=== PATIENT | female | born 1970 | race Caucasian/White ===

== ENCOUNTER → 2016-03-01 | Outpatient (CLI) | payer MEDICAID | LOC: RT 08:52 | PROVIDERS: ATTEND Internal Medicine Critical Care Medicine | DX: J44.9 Chronic obstructive pulmonary disease, unspecified (principal); J45.909 Unspecified asthma, uncomplicated; R06.00 Dyspnea, unspecified; J30.2 Other seasonal allergic rhinitis; Z72.0 Tobacco use | CPT/HCPCS: 94060; 94726; 94729 ==

== ENCOUNTER 2017-03-16 14:57 | Inpatient (IN) | payer MEDICAID ==
[2017-03-16] VITALS (10 sets, daily range): BP systolic 107–116; BP diastolic 62–74
[~2017-03-16] VITALS: Ht 165.1 cm; Wt 54.1 kg
[2017-03-16] MEDS ORDERED: RT-ALBUTEROL/IPRATROPIUM 3 ML (DUONEB) VIAL ONE ×2 (15:01→15:52)
--- OUTSIDE RECORDS SUMMARY | 2017-03-16 15:02 | XMS REPORT ---
Author Author ALEX BANKS [facility] Address [address] [place] [address] Care Team Providers Care Rehab Spec Name Role Phone ALEX BANKS Unavailable PROBLEMS Type Condition ICD9-CM Code CGB56-PR Code Onset Dates Condition Status SNOMED Code Assessment COPD exacerbation J44.1 Oct, Active [id number] ALLERGIES Substance Reaction Event Type Date Status Erythromycin Unknown Drug Allergy Oct, Active SOCIAL HISTORY No smoking Hx information available PLAN OF CARE VITAL SIGNS Heart Rate 132 bpm 2015-10-14 Respiratory Rate 22 2015-10-14 Oximetry 86 % 2015-10-14 Blood pressure systolic 130 mmHg 2015-10-14 Blood pressure diastolic 78 mmHg 2015-10-14 MEDICATIONS Medication Instructions Dosage Frequency Start Date End Date Duration Status Xopenex HFA 45 MCG/ACT Inhalation every 4 hrs 1 puff as needed 4h Active Albuterol Sulfate (2.5 MG/3ML) 0.083% Inhalation Three times a day 3 ml 8h Active Stiolto Respimat 2.5-2.5 MCG/ACT Inhalation Once a day 2 puffs 24h Active RESULTS No Results PROCEDURES Procedure Date Ordered Related Diagnosis Body Site NEBULIZER TREATMENT 2015-10-14 Abnormal MEASURE BLOOD OXYGEN LEVEL Oct 14, 2015 Office Visit, New Pt., Level 2 Oct 14, 2015 NEB/MDI RX INITIAL Oct 14, 2015 IMMUNIZATIONS No Known Immunizations
[2017-03-16] MEDS ORDERED: methylPREDNISolone 125 MG (Solu-MEDROL) VIAL IVP ONE (15:15)
[2017-03-16 15:18] LABS: BASOPHILS % (AUTO) 0 % (0-10); EOSINOPHILS % (AUTO) 0 % (0-10); HEMATOCRIT 42 % (35-52); HEMOGLOBIN 11.7 G/DL (11.5-16.0); LYMPHOCYTES # (AUTO) 0.6 X 10^3 (1.0-4.0); LYMPHOCYTES % (AUTO) 6 % (12-44); MEAN CORPUSCULAR HEMOGLOBIN 28 PG (25-34); MEAN CORPUSCULAR HGB CONC 28 G/DL (32-36); MEAN CORPUSCULAR VOLUME 100 FL (80-99); MEAN PLATELET VOLUME 10.2 FL (7.4-10.4); MONOCYTES # (AUTO) 0.5 X 10^3 (0.0-1.0); MONOCYTES % (AUTO) 6 % (0-12); NEUTROPHILS # (AUTO) 7.9 X 10^3 (1.8-7.8); NEUTROPHILS % (AUTO) 88 % (42-75); PLATELET COUNT 275 10^3/uL (130-400); RED BLOOD COUNT 4.25 10^6/uL (4.35-5.85); RED CELL DISTRIBUTION WIDTH 12.8 % (10.0-14.5)
[2017-03-16] MEDS ORDERED: RT-ALBUTEROL SULF 2.5 MG/3 ML PRE-MIX VIAL INH STA (15:24)
[2017-03-16] MEDS ORDERED: RT-IPRATROPIUM (ATROVENT) 0.5MG/2.5ML AMP IH ONE (15:30)
[2017-03-16] MEDS ORDERED: NS IV 1000 ML 1,000 ML ONE (15:33)
[2017-03-16 15:38] LABS: BAND NEUTROPHILS 0 %; BASOPHILS % (MANUAL) 0 %; EOSINOPHILS % (MANUAL) 0 %; LYMPHOCYTES % (MANUAL) 8 %; MONOCYTES % (MANUAL) 3 %; NEUTROPHILS % (MANUAL) 89 %
[2017-03-16 15:39] LABS: STOMATOCYTES MODERATE
[2017-03-16 15:40] LABS: ALANINE AMINOTRANSFERASE 29 U/L (0-55); ALBUMIN 3.8 GM/DL (3.2-4.5); ALKALINE PHOSPHATASE 76 U/L (40-136); BILIRUBIN,TOTAL 0.2 MG/DL (0.1-1.0); BUN/CREATININE RATIO 11; CARBON DIOXIDE 45 MMOL/L (21-32); CHLORIDE 85 MMOL/L (98-107); CREATININE SERUM 0.54 MG/DL (0.60-1.30); GFR ESTIMATED > 60; GLUCOSE 164 MG/DL (70-105); POTASSIUM 4.3 MMOL/L (3.6-5.0); SODIUM 141 MMOL/L (135-145); TOTAL PROTEIN 7.7 GM/DL (6.4-8.2)
[2017-03-16] MEDS ORDERED: NS IV 1000 ML 1,000 ML IV ONE (15:45)
[2017-03-16 16:10] LABS: ABG BASE EXCESS 26.4 MMOL/L (-2.5-2.5); ABG OXYGEN SATURATION 95 % (94-100); ABG PH 7.36 (7.37-7.43); ABG PO2 72 MMHG (79-93); ABG TCO2 56.6 MMOL/L (21.0-31.0)
[2017-03-16 16:12] LABS: ABG PCO2 96 MMHG (35-45)
[2017-03-16 16:13] LABS: ALLENS TEST POSITIVE
[2017-03-16 16:14] LABS: INSPIRED O2 40% BIPAP; PATIENT TEMP 97.8; VENTILATOR NO
--- NOTE | 2017-03-16 16:17 | Diagnostic Imaging Report ---
PATIENT HISTORY: Shortness of air, hypoglycemia, hypoxemia. TECHNIQUE: Single frontal view of the chest. COMPARISON: CT from 03/16/2017. FINDINGS: Lung volumes are mildly large. No focal consolidation is seen. There is no pleural effusion or pneumothorax. The cardiomediastinal silhouette appears normal in size and contour. No acute osseous abnormality is seen. IMPRESSION: No acute pulmonary abnormality. Dictated by: Dictated on workstation # [id number]
--- NOTE | 2017-03-16 17:24 | ED Respiratory ---
General Chief Complaint: Respiratory Problems Stated Complaint: LOW BS Nursing Triage Note: pt, family report had been having soa today, worsening following a ct scan approx 30 min ago. 02 at 51% on 3L on arrival to the ER, alert and oriented. seen by pcp, and instructed to only ambulate to and from bathroom, and encouraged hospital admit, but pt refused. pt request DNI at this time. Source: patient, family, old records Exam Limitations: no limitations History of Present Illness Date Seen by Provider: Mar 16, 2017 Time Seen by Provider: 14:58 Initial Comments This 46-year-old woman presents to the emergency room with extreme dyspnea, chest discomfort, pallor, and oxygen saturation of 51 percent. She was calling for help in distress and felt like she was going to "go down". Patient has known severe COPD and was at the hospital for a CT scan when her oxygen take ran out. She was transferred to the emergency room. Patient had received a CT scan for follow-up on pulmonary nodules. CT was reviewed and those nodules have resolved and there is no evidence of infection. Oxygen saturations improved to the 80s on high flow mask. Respiratory therapy was summoned for BiPAP. DuoNeb was immediately initiated. Patient states a prior history of CHF but no echocardiogram is on file. Patient admits to continued smoking. She is down to about 2 cigarettes per day. Patient had been intubated recently at [facility] in [place]. Patient's primary care provider, Dr. JOHNSON , has advised the patient that she is nearing end-stage disease and needs to make preparations as such. Allergies and Home Medications Allergies Coded Allergies: No Allergy Information Available (Unverified , 12/15/16) Constitutional: no symptoms reported EENTM: no symptoms reported Respiratory: see HPI Cardiovascular: see HPI Gastrointestinal: no symptoms reported Genitourinary: no symptoms reported : No Musculoskeletal: no symptoms reported Skin: no symptoms reported Psychiatric/Neurological: No Symptoms Reported Hematologic/Lymphatic: No Symptoms Reported Past Njqokyi-Dxhzai-Vqpzjk Hx Patient Social History Alcohol Use: Past History Recreational Drug Use: Yes Drug of Choice: meth, marijuana Smoking Status: Current Everyday Smoker Type Used: Cigarettes 2nd Hand Smoke Exposure: Yes Recent Foreign Travel: No Contact w/Someone Who Travel: No Recent Infectious Disease Expo: No Recent Hopitalizations: Yes Immunizations Up To Date Tetanus Booster (TDap): Less than 5yrs PED Vaccines UTD: No Date of Pneumonia Vaccine: Dec 10, 2007 Date of Influenza Vaccine: Jan 12, 2017 Seasonal Allergies Seasonal Allergies: Yes Surgeries History of Surgeries: Yes Surgeries: Section Respiratory History of Respiratory Disorde: Yes (Nodules that have resolved) Respiratory Disorders: Asthma, Pneumonia, COPD, Emphysema Currently Using CPAP: Yes (used to) Currently Using BIPAP: No Cardiovascular History of Cardiac Disorders: Yes (CHF) Cardiac Disorders: Hypertension Neurological History of Neurological Disord: No Reproductive System : No Sexually Transmitted Disease: Yes (HPV) Genitourinary History of Genitourinary Disor: No Gastrointestinal History of Gastrointestinal Di: No Musculoskeletal History of Musculoskeletal Dis: No Endocrine History of Endocrine Disorders: Yes (pre-diabetic) Cancer History of Cancer: Yes Cancer: Cervical Did You Recieve Any Treatments: Yes Type of Tx Receive: Surgical Intervention Cancer Comment: believe it was caught early Psychosocial History of Psychiatric Problem: Yes Behavioral Health Disorders: Anxiety, ODD, Bipolar, Violent Behavior, Depression Integumentary History of Skin or Integumenta: No Blood Transfusions 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) Physical Exam Vital Signs Vital Sign - Last 12Hours 03/16/17 03/16/17 15:08 15:57 Pulse 117 Resp 28 B/P (MAP) 132/85 (101) Pulse Ox 96 O2 Delivery OxyMask O2 Flow Rate 15.00 FiO2 86 Capillary Refill : Less Than 3 Seconds General Appearance: WD/WN, severe distress HEENT: PERRL/EOMI, normal ENT inspection, other (oropharynx somewhat dry) Neck: normal inspection Respiratory: respiratory distress, decreased breath sounds, accessory muscle use, No crackles, No rales, No rhonchi, wheezing (subtle wheezing) Cardiovascular: no edema, no murmur, tachycardia Gastrointestinal: normal bowel sounds, non tender, soft Extremities: non-tender, normal inspection, no pedal edema, no calf tenderness Neurologic/Psychiatric: alarm signaler II-XII nml as tested, no motor/sensory deficits, alert, normal mood/affect, oriented x 3 Skin: normal color, warm/dry Focused Exam Evaluation Lactate Level Laboratory Tests 03/16/17 15:09: Lactic Acid Level 1.91 Lactic Acid Level Laboratory Tests Test 03/16/17 15:09 Lactic Acid Level 1.91 MMOL/L (0.50-2.00) Progress/Results/Core Measures Suspected Sepsis Recent Fever Within 48 Hours: Yes Infection Criteria Present: Suspected New Infection New/Unexplained Altered Menta: No Sepsis Screen: Possible Sepsis Risk Sepsis Diagnosis: SIRS Temperature: Pulse: 110 Respiratory Rate: 28 Laboratory Tests 03/16/17 15:09: White Blood Count 9.0 Blood Pressure 112 /74 Mean: 101 Laboratory Tests 03/16/17 15:09: Lactic Acid Level 1.91 Laboratory Tests 03/16/17 15:09: Creatinine 0.54L, Platelet Count 275, Total Bilirubin 0.2 Results/Orders Lab Results Laboratory Tests Test 03/16/17 15:09 03/16/17 15:45 Range/Units White Blood Count 9.0 4.3-11.0 10^3/uL Red Blood Count 4.25 L 4.35-5.85 10^6/uL Hemoglobin 11.7 11.5-16.0 G/DL Hematocrit 42 35-52 % Mean Corpuscular Volume 100 H 80-99 FL Mean Corpuscular Hemoglobin 28 25-34 PG Mean Corpuscular Hemoglobin Concent 28 L 32-36 G/DL Red Cell Distribution Width 12.8 10.0-14.5 % Platelet Count 275 130-400 10^3/uL Mean Platelet Volume 10.2 7.4-10.4 FL Neutrophils (%) (Auto) 88 H 42-75 % Lymphocytes (%) (Auto) 6 L 12-44 % Monocytes (%) (Auto) 6 0-12 % Eosinophils (%) (Auto) 0 0-10 % Basophils (%) (Auto) 0 0-10 % Neutrophils # (Auto) 7.9 H 1.8-7.8 X 10^3 Lymphocytes # (Auto) 0.6 L 1.0-4.0 X 10^3 Monocytes # (Auto) 0.5 0.0-1.0 X 10^3 Eosinophils # (Auto) 0.0 0.0-0.3 10^3/uL Basophils # (Auto) 0.0 0.0-0.1 10^3/uL Neutrophils % (Manual) 89 % Lymphocytes % (Manual) 8 % Monocytes % (Manual) 3 % Eosinophils % (Manual) 0 % Basophils % (Manual) 0 % Band Neutrophils 0 % Stomatocytes MODERATE Sodium Level 141 135-145 MMOL/L Potassium Level 4.3 3.6-5.0 MMOL/L Chloride Level 85 L 98-107 MMOL/L Carbon Dioxide Level 45 H 21-32 MMOL/L Anion Gap 11 5-14 MMOL/L Blood Urea Nitrogen 6 L 7-18 MG/DL Creatinine 0.54 L 0.60-1.30 MG/DL Estimat Glomerular Filtration Rate > 60 BUN/Creatinine Ratio 11 Glucose Level 164 H 70-105 MG/DL Lactic Acid Level 1.91 0.50-2.00 MMOL/L Calcium Level 10.0 8.5-10.1 MG/DL Total Bilirubin 0.2 0.1-1.0 MG/DL Aspartate Amino Transf (AST/SGOT) 18 5-34 U/L Alanine Aminotransferase (ALT/SGPT) 29 0-55 U/L Alkaline Phosphatase 76 40-136 U/L Troponin I < 0.30 <0.30 NG/ML Total Protein 7.7 6.4-8.2 GM/DL Albumin 3.8 3.2-4.5 GM/DL Serum Test, Qualitative NEGATIVE NEGATIVE Blood Gas Puncture Site LEFT RADIAL Blood Gas Patient Temperature 97.8 Arterial Blood pH 7.36 L 7.37-7.43 Arterial Blood Partial Pressure CO2 96 *H 35-45 MMHG Arterial Blood Partial Pressure O2 72 L 79-93 MMHG Arterial Blood HCO3 54 *H 23-27 MMOL/L Arterial Blood Total CO2 56.6 H 21.0-31.0 MMOL/L Arterial Blood Oxygen Saturation 95 94-100 % Arterial Blood Base Excess 26.4 H -2.5-2.5 MMOL/L Myke Test POSITIVE Blood Gas Ventilator Setting NO Blood Gas Inspired Oxygen 40% BIPAP My Orders Orders - HIMANSHU ALSTON MD Albuterol/Ipra Inhalation Soln (Duoneb I (03/16/17 15:01) Cbc With Automated Diff (03/16/17 15:08) Comprehensive Metabolic Panel (03/16/17 15:08) Blood Culture (03/16/17 15:08) Saline Lock/Iv-Start (03/16/17 15:08) Ekg Tracing (03/16/17 15:08) O2 (03/16/17 15:08) Lactic Acid Analyzer (03/16/17 15:08) Methylprednisolone Sod Succ (Solu-Medrol (03/16/17 15:15) Manual Differential (03/16/17 15:09) Albuterol Pre-Mix Nebs (Rt) (Proventil (03/16/17 15:24) Ipratropium 0.02% Neb Solution (Atrovent (03/16/17 15:30) Svn Sm Volume Nebulizer Rt-Rfs (03/16/17 15:24) Svn Sm Volume Nebulizer Rt-Rfs (03/16/17 15:24) Chest 1 View, Ap/Pa Only (03/16/17 15:27) Ns Iv 1000 Ml (Sodium Chloride 0.9%) (03/16/17 15:33) Ns Iv 1000 Ml (Sodium Chloride 0.9%) (03/16/17 15:45) Albuterol/Ipra Inhalation Soln (Duoneb I (03/16/17 15:52) Arterial Blood Gas (03/16/17 15:45) Troponin I (03/16/17 16:57) Medications Given in ED Current Medications Medications Dose Ordered Sig/Bhargavi Route Start Time Stop Time Status Last Admin Dose Admin Methylprednisolone Sodium Succinate 125 mg ONCE ONCE IVP 03/16/17 15:15 03/16/17 15:16 DC 03/16/17 15:49 125 MG Sodium Chloride 1,000 ml @ 100 mls/hr Q10H ONCE IV 03/16/17 15:45 03/17/17 01:44 03/16/17 15:52 100 MLS/HR Vital Signs/I&O Vital Sign - Last 12Hours 03/16/17 03/16/17 03/16/17 03/16/17 15:08 15:08 15:37 15:57 Pulse 117 115 110 Resp 28 B/P (MAP) 132/85 (101) Pulse Ox 96 93 92 O2 Delivery OxyMask OxyMask O2 Flow Rate 15.00 15.00 40.00 50.00 FiO2 86 Capillary Refill : Less Than 3 Seconds Blood Pressure Mean: 101 Progress Note : Progress Note Patient was treated with a double DuoNeb treatment followed by an hour-long nebulizer treatment. She was also given Solu-Medrol 125 mg IV route. Normal saline was started at 100 mL per hour. Hydration will be given cautiously due to patient's stated history of CHF. Patient did have some chest pain associated with her shortness of breath. EKG and troponin showed no evidence of ischemia. Patient was promptly started on BiPAP which significantly improved her respiratory status. Case was reviewed with Dr. Nassar who requested consultation with Dr. Mcmahon and Dr. Wong. Dr. Mcmahon requested scheduled nebulizer treatments and Solu-Medrol 40 mg every 6 hours. He will see the patient in the morning. Dr. Wong requested a 2-D echocardiogram for the morning. I did have a long discussion about CODE STATUS with the patient and her guests/family. Patient wants to avoid intubation as she has been intubated previously including a recent intubation at [facility] in [place]. At this time she would like to be intubated only if it is a last resort to save her life. ECG Initial ECG Impression Date: Mar 16, 2017 Initial ECG Impression Time: 15:08 Initial ECG Rate: 118 Initial ECG Rhythm: S.Tach Comment Sinus tachycardia with no ST elevation or depression. No abnormal intervals or axis deviation. Diagnostic Imaging Diagonstic Imaging: Xray Plain Films/CT/US/NM/MRI: chest Comments Chest x-ray viewed by me and report reviewed. See report below: NAME: [facility] REC#: [id number] PT STATUS: REG ER : 1970 PHYSICIAN: HIMANSHU ALSTON MD ADMIT DATE: 03/16/17/ER Signed Date of Exam: 03/16/17 CHEST 1 VIEW, AP/PA ONLY PATIENT HISTORY: Shortness of air, hypoglycemia, hypoxemia. TECHNIQUE: Single frontal view of the chest. COMPARISON: CT from 03/16/2017. FINDINGS: Lung volumes are mildly large. No focal consolidation is seen. There is no pleural effusion or pneumothorax. The cardiomediastinal silhouette appears normal in size and contour. No acute osseous abnormality is seen. IMPRESSION: No acute pulmonary abnormality. Dictated by: Dictated on workstation # [id number] Dict: 03/16/17 1614 Trans: 03/16/17 1635 Interpreted by: MAYA SCRUGGS MD Electronically signed by: MAYA SCRUGGS MD 03/16/17 1635 Departure Communication (Admissions) Time/Spoke to Admitting Phy: 17:[address] Nassar Communication/Consulting Dr. Mcmahon at 17:05 Dr. Wong at 17:10 Impression Impression: Primary Impression: Respiratory failure Qualified Codes: J96.01 - Acute respiratory failure with hypoxia; J96.02 - Acute respiratory failure with hypercapnia Additional Impressions: COPD exacerbation Chest pain Qualified Codes: R07.9 - Chest pain, unspecified Disposition: ADMITTED INPATIENT Condition: Improved Admissions Decision to Admit Reason: Admit from ER (General) Decision to Admit/Date: Mar 16, 2017 Time/Decision to Admit Time: 15:00 Departure-Patient Inst. Referrals: RICHELLE JOHNSON DO (PCP/Family) Primary Care Physician HIMANSHU ALSTON MD Mar 16, 2017 17:24
[2017-03-16] MEDS ORDERED: ASPIRIN 325 MG (5 GR) TABLET PO ONE (17:30)
[2017-03-16] MEDS ORDERED: RT-ALBUTEROL SULF 2.5 MG/3 ML PRE-MIX VIAL IH PRN (18:45)
[2017-03-16] MEDS ORDERED: ENOXAPARIN 40 MG/0.4 ML (LOVENOX) SYR SC SCH (18:45)
[2017-03-16] MEDS ORDERED: CATHETER FLUSH 10 ML SYR IV PRN (18:45)
[2017-03-16] MEDS: NS IV 1000 ML 1,000 ML IV SCH (19:37)
[2017-03-16] MEDS: inSUlin (REGULAR) HUMAN 1 UNIT/0.01 ML (CHARGE PER UNIT) SC SCH (21:02)
[2017-03-16] MEDS: ALPRAZolam 1 MG (XANAX) TAB PO SCH ×2 (22:05→22:39)
[2017-03-16] MEDS: RT-ALBUTEROL/IPRATROPIUM 3 ML (DUONEB) VIAL IH SCH (23:00)
[2017-03-17] VITALS (19 sets, daily range): BP systolic 103–129; BP diastolic 65–111
[2017-03-17] MEDS: methylPREDNISolone 40 MG/ML (Solu-MEDROL) VIAL IV SCH ×5 (00:10→23:57)
[2017-03-17] MEDS: NS IV 1000 ML 1,000 ML IV SCH ×2 (02:09→15:09)
[2017-03-17] MEDS: RT-ALBUTEROL/IPRATROPIUM 3 ML (DUONEB) VIAL IH SCH ×6 (02:37→22:45)
[2017-03-17 05:07] LABS: BASOPHILS % (AUTO) 0 % (0-10); EOSINOPHILS % (AUTO) 0 % (0-10); HEMATOCRIT 37 % (35-52); HEMOGLOBIN 10.3 G/DL (11.5-16.0); LYMPHOCYTES # (AUTO) 0.3 X 10^3 (1.0-4.0); LYMPHOCYTES % (AUTO) 7 % (12-44); MEAN CORPUSCULAR HEMOGLOBIN 28 PG (25-34); MEAN CORPUSCULAR HGB CONC 28 G/DL (32-36); MEAN CORPUSCULAR VOLUME 99 FL (80-99); MEAN PLATELET VOLUME 10.3 FL (7.4-10.4); MONOCYTES # (AUTO) 0.2 X 10^3 (0.0-1.0); MONOCYTES % (AUTO) 5 % (0-12); NEUTROPHILS # (AUTO) 4.5 X 10^3 (1.8-7.8); NEUTROPHILS % (AUTO) 89 % (42-75); PLATELET COUNT 258 10^3/uL (130-400); RED BLOOD COUNT 3.71 10^6/uL (4.35-5.85); RED CELL DISTRIBUTION WIDTH 12.7 % (10.0-14.5); WHITE BLOOD COUNT 5.1 10^3/uL (4.3-11.0)
[2017-03-17 05:35] LABS: BUN/CREATININE RATIO 18; CALCIUM 9.5 MG/DL (8.5-10.1); CARBON DIOXIDE 41 MMOL/L (21-32); CHLORIDE 90 MMOL/L (98-107); GFR ESTIMATED > 60; GLUCOSE 200 MG/DL (70-105); MAGNESIUM 1.5 MG/DL (1.8-2.4); PHOSPHORUS 3.1 MG/DL (2.3-4.7); POTASSIUM 4.6 MMOL/L (3.6-5.0); SODIUM 142 MMOL/L (135-145)
[2017-03-17] MEDS ORDERED: MAGNESIUM 1 GM/100 ML IVPB 100 ML IV SCH (06:00)
[2017-03-17] MEDS ORDERED: POTASSIUM CL 10MEQ/50ML IVPB 50 ML IV SCH (06:00)
[2017-03-17] MEDS ORDERED: KCL 20 MEQ TAB (K-DUR) PO SCH (06:00)
[2017-03-17] MEDS: MAGNESIUM 1 GM/100 ML IVPB 100 ML IV SCH ×2 (06:02→07:32)
[2017-03-17] MEDS: inSUlin (REGULAR) HUMAN 1 UNIT/0.01 ML (CHARGE PER UNIT) SC SCH ×4 (06:02→20:14)
[2017-03-17] MEDS: ALPRAZolam 1 MG (XANAX) TAB PO SCH ×4 (06:02→22:06)
--- NOTE | 2017-03-17 06:43 | Pulmonary Consultation ---
History of Present Illness History of Present Illness Date of Consultation 03/17/17 06:38 Time Seen by Provider: 06:38 Date of Admission History of Present Illness 46yo with hx of severe COPD and persistent tobacco use, and hx of CHF presented to ED secondary to worsening extreme dyspnea and chest pressure. Sp02 on RA was 51% upon ED admission. Pt was at the hospital getting a CT of chest to fMarcu on lung nodules. She was taken to ED secondary to severe COPD. Pt was recently on ventilator at [facility] in [place]. Allergies and Home Medications Allergies Coded Allergies: azithromycin (Verified Allergy, Intermediate, 03/16/17) lip swelling and blisters codeine (Verified Allergy, Unknown, 03/16/17) Past Darylaw-Zetgvn-Oisvsq Hx Patient Social History Alcohol Use: Denies Use Recreational Drug Use: Yes Drug of Choice: meth, marijuana Smoking Status: Current Everyday Smoker Type Used: Cigarettes 2nd Hand Smoke Exposure: Yes Recent Foreign Travel: No Contact w/Someone Who Travel: No Recent Infectious Disease Expo: No Recent Hopitalizations: Yes Immunizations Up To Date Tetanus Booster (TDap): Less than 5yrs PED Vaccines UTD: No Date of Pneumonia Vaccine: Dec 10, 2007 Date of Influenza Vaccine: Jan 12, 2017 Seasonal Allergies Seasonal Allergies: Yes Surgeries History of Surgeries: Yes Surgeries: Section Respiratory History of Respiratory Disorde: Yes (Nodules that have resolved) Respiratory Disorders: Asthma, Pneumonia, COPD, Emphysema Currently Using CPAP: Yes (used to) Currently Using BIPAP: No Cardiovascular History of Cardiac Disorders: Yes (CHF) Cardiac Disorders: Hypertension Neurological History of Neurological Disord: No Reproductive System : No Sexually Transmitted Disease: Yes (HPV) Genitourinary History of Genitourinary Disor: No Gastrointestinal History of Gastrointestinal Di: No Musculoskeletal History of Musculoskeletal Dis: No Endocrine History of Endocrine Disorders: Yes (pre-diabetic) HEENT History of HEENT Disorders: No Cancer History of Cancer: Yes Cancer: Cervical Did You Recieve Any Treatments: Yes Type of Tx Receive: Surgical Intervention Cancer Comment: believe it was caught early Psychosocial History of Psychiatric Problem: Yes Behavioral Health Disorders: Anxiety, ODD, Bipolar, Violent Behavior, Depression Integumentary History of Skin or Integumenta: No Blood Transfusions 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 Dyspnea, Lt Headedness Neurological: Weakness Exam Exam Vital Signs Date Time Temp Pulse Resp B/P (MAP) Pulse Ox O2 Delivery O2 Flow Rate FiO2 03/17/17 06:00 96 20 115/75 (88) 98 NIV Bilevel 40.00 03/17/17 05:00 95 13 129/111 (117) 94 NIV Bilevel 40.00 03/17/17 04:00 98 21 121/71 (88) 92 NIV Bilevel 40.00 03/17/17 03:37 110 26 93 40.00 03/17/17 03:37 NIV Bilevel 40.00 03/17/17 03:35 93 NIV Bilevel 50 03/17/17 03:25 NIV Bilevel 50.00 03/17/17 03:00 105 21 120/69 (86) 95 03/17/17 02:38 96 Nasal Cannula 5.00 03/17/17 02:00 101 20 120/75 (90) 96 High Flow N/C 6.00 03/17/17 01:00 97 03/17/17 01:00 96 21 114/67 (83) 97 High Flow N/C 6.00 03/17/17 00:05 94 High Flow N/C 6.00 03/17/17 00:00 95 20 119/67 (84) 98 High Flow N/C 6.00 03/17/17 00:00 97.8 94 High Flow N/C 6.00 03/16/17 23:02 100 19 98 50.00 03/16/17 23:00 99 23 113/67 (82) 98 NIV Bilevel 50.00 03/16/17 22:00 103 21 115/62 (79) 96 NIV Bilevel 50.00 03/16/17 21:01 101 22 98 60.00 03/16/17 21:00 101 20 113/66 (82) 97 NIV Bilevel 50.00 03/16/17 20:15 98 NIV Bilevel 50 03/16/17 20:00 105 21 116/72 (87) 95 NIV Bilevel 60.00 03/16/17 19:27 107 29 100 60.00 03/16/17 19:00 97.7 105 21 111/74 (86) 100 NIV Bilevel 60.00 03/16/17 19:00 104 03/16/17 18:20 NIV Bilevel 03/16/17 18:10 96.9 95 20 92 OxyMask 50.00 03/16/17 15:57 110 28 92 50.00 03/16/17 15:37 115 93 40.00 03/16/17 15:08 117 132/85 (101) 96 OxyMask 15.00 03/16/17 15:08 OxyMask 15.00 86 I & O 03/17/17 07:00 Intake Total 1245 ml Output Total 875 ml Balance 370 ml General Appearance: Mild Distress HEENT: Pharynx Normal Neck: Non Tender, Supple Respiratory: Accessory Muscle Use, Decreased Breath Sounds, Wheezing Cardiovascular: Regular Rate, Rhythm Capillary Refill: Less Than 3 Seconds Gastrointestinal: normal bowel sounds, non tender, soft Extremity: Non Tender, No Calf Tenderness, No Pedal Edema Neurologic/Psychiatric: Oriented x3 Skin: Normal Color, Warm/Dry Lymphatic: No Adenopathy Results Lab Laboratory Tests 03/16/17 15:09 03/17/17 04:22 Assessment/Plan Assessment/Plan Acute on chronic respiratory failure -SVNs -oxygen -PT improved with noninvasive ventilation -PT will benefit from home vent to mask -Pt has oxygen through [facility] Severe COPD with AE - Pt uses 2-3 liters of oxygen at home Tobacco use -education Methamphetamine hx Marijuana hx 255 Clinical Quality Measures DVT/VTE Risk/Contraindication: Risk Factor Score Per Nursin RFS Level Per Nursing on Admit: 2=Moderate TALIAT HUIZAR DO Mar 17, 2017 06:43
[2017-03-17] MEDS: RT-ADVAIR HFA 115/21 MCG PER PUFF IH SCH ×2 (07:24→19:25)
--- NOTE | 2017-03-17 09:30 | Diagnostic Imaging Report ---
INDICATION: COPD exacerbation. FINDINGS: Lungs are clear. The heart and vascularity within normal limits. There is no effusion or pneumothorax. IMPRESSION: No acute appearing abnormality. Dictated by: Dictated on workstation # [id number]
--- NOTE | 2017-03-17 12:50 | History & Physical-Hospitalist ---
HPI History of Present Illness: HPI/Chief Complaint CC: Dyspnea HPI: This is a 46-year-old white female clinic patient of Dr. BAUTISTA in [place] with a past medical history of severe COPD and was also told by her primary care provider to get her affairs in order and likely a hospice candidate due to the severity of her COPD. She was at via [facility], [place] to obtain CT scan of her lung due to lung nodule but there was no nodule noted on repeat CT scan that she became very short of breath was in severe respiratory distress when she was sent to the ER placed on BiPAP and much improved now. She does continue to smoke and she told me that she wanted to have all natural herbals and supplements instead of pharmaceutical medication to help her get healthy again. She is aware that the first thing she needs to do is discontinue smoking. ER doctor and Dr. Mcmahon talked her about CODE STATUS since if she did get placed on ventilator there would be no chance of getting off the ventilator and trach dependent ventilator dependent status would occur. She is doing better now she only has to take a breath after every for words and she is asking for a Nicoderm patch. Source: patient Exam Limitations: no limitations Date Seen 03/17/17 Time Seen by Provider: 11:15 Attending Physician Clarisa Bernstein DO PCP Jose Bautista DO Referring Physician Date of Admission Mar 16, 2017 at 17:19 Home Medications & Allergies Home Medications Reviewed patient Home Medication Reconciliation Form Allergies Allergies Coded Allergies azithromycin (Verified Allergy, Intermediate, 03/16/17) lip swelling and blisters codeine (Verified Allergy, Unknown, 03/16/17) Past Crwyqkj-Xjlthz-Bhbpqy Hx Patient Social History Marrital Status: single Employed/Student: unemployed Alcohol Use: Denies Use Recreational Drug Use: Yes Drug of Choice: meth, marijuana Smoking Status: Current Everyday Smoker Type Used: Cigarettes 2nd Hand Smoke Exposure: Yes Physical Abuse Screen: No Sexual Abuse: No Recent Foreign Travel: No Contact w/other who traveled: No Recent Hopitalizations: Yes Recent Infectious Disease Expo: No Immunizations Up To Date Tetanus Booster (TDap): Less than 5yrs Pediatric: No Date of Pneumonia Vaccine: Dec 10, 2007 Date of Influenza Vaccine: Jan 12, 2017 Seasonal Allergies Seasonal Allergies: Yes Surgeries Yes Section Respiratory Yes (Nodules that have resolved) COPD, Emphysema, Sleep Apnea Currently Using CPAP: Yes (used to) Currently Using BIPAP: No Cardiovascular Yes (CHF) Cardiomyopathy, Coronary Artery Disease, Hypertension Neurological No Reproductive System : No Sexually Transmitted Disease: Yes (HPV) Genitourinary No Gastrointestinal No Musculoskeletal No Endocrine History of Endocrine Disorders: Yes (pre-diabetic) HEENT History of HEENT Disorders: No Cancer Yes Cervical Did You Recieve Any Treatments: Yes Type of Treatment: Surgical Intervention Cancer Comment: believe it was caught early Psychosocial History of Psychiatric Problem: Yes Behavioral Health Disorders: Anxiety, ODD, Bipolar, Violent Behavior, Depression Integumentary History of Skin or Integumenta: No Blood Transfusions 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) Review of Systems Constitutional: see HPI, dizziness, malaise EENTM: no symptoms reported Respiratory: dyspnea on exertion, short of breath, wheezing Cardiovascular: no symptoms reported Gastrointestinal: no symptoms reported Genitourinary: no symptoms reported Musculoskeletal: no symptoms reported Skin: no symptoms reported Psychiatric/Neurological: No Symptoms Reported All Other Systems Reviewed Negative Unless Noted: Yes Physical Exam Physical Exam Vital Signs Vital Sign - Last 12Hours 03/16/17 03/16/17 03/16/17 15:08 15:57 18:10 Temp 96.9 Pulse 117 Resp 28 B/P (MAP) 132/85 (101) Pulse Ox 96 O2 Delivery OxyMask O2 Flow Rate 15.00 FiO2 86 Capillary Refill : Less Than 3 Seconds General Appearance: WD/WN, Anxious, Chronically ill, Cachetic, Mild Distress ( due to mild tachypnea) Eyes: Bilateral Eye Normal Inspection, Bilateral Eye PERRL HEENT: PERRL/EOMI, Normal ENT Inspection, Pharynx Normal Neck: Full Range of Motion, Normal Inspection, Non Tender, Supple, Carotid Bruit Respiratory: Chest Non Tender, No Accessory Muscle Use, No Respiratory Distress , Crackles, Decreased Breath Sounds, Wheezing Cardiovascular: Regular Rate, Rhythm, No Edema, No Gallop, No JVD, No Murmur, Normal Peripheral Pulses Gastrointestinal: Normal Bowel Sounds, No Organomegaly, No Pulsatile Mass, Non Tender, Soft Back: Normal Inspection, No CVA Tenderness, No Vertebral Tenderness Extremity: Normal Capillary Refill, Normal Inspection, Normal Range of Motion, Non Tender, No Calf Tenderness, No Pedal Edema Neurologic/Psychiatric: Alert, Oriented x3, No Motor/Sensory Deficits, Normal Mood/Affect Skin: Normal Color, Warm/Dry Lymphatic: No Adenopathy Results Results/Procedures Lab Laboratory Tests 03/16/17 15:09 03/17/17 04:22 Assessment/Plan Admission Diagnosis Respiratory failure Assessment and Plan Plan: IV steroids Insulin Transfer to floor Consult cardiology for CHF history Reconcile home meds when gathered up and checked for accuracy Poor prognosis long-term definitely hospice candidate due to the severity of her COPD and young age Appreciate Dr. Mcmahon's consultation Diagnosis/Problems Diagnosis/Problems (1) Respiratory failure Status: Acute Qualifiers: Qualified Codes: J96.01 - Acute respiratory failure with hypoxia; J96.02 - Acute respiratory failure with hypercapnia (2) Cardiomyopathy Status: Chronic Qualifiers: Qualified Codes: I42.9 - Cardiomyopathy, unspecified (3) Smoker Status: Acute (4) TEMI (obstructive sleep apnea) Status: Chronic (5) COPD exacerbation Status: Acute Assessment & Plan: IV steroids Clinical Quality Measures DVT/VTE Risk/Contraindication: Risk Factor Score Per Nursin RFS Level Per Nursing on Admit: 2=Moderate CLARISA BERNSTEIN DO Mar 17, 2017 12:50
[2017-03-17] MEDS: NICOTINE 21 MG (NICODERM) PATCH TD SCH (13:30)
[2017-03-17] MEDS ORDERED: ACET-93 PO (13:32)
[2017-03-17] MEDS ORDERED: ALPR1TAB7 PO (13:34)
[2017-03-17] MEDS ORDERED: AMLO5TAB2 PO (13:34)
[2017-03-17] MEDS ORDERED: ASPI-586 PO (13:35)
[2017-03-17] MEDS ORDERED: CLOP75TA69 PO (13:36)
[2017-03-17] MEDS ORDERED: ATOR80TA76 PO (13:36)
[2017-03-17] MEDS ORDERED: PERM1LIQ MC (13:37)
[2017-03-17] MEDS ORDERED: NITR0.4T42 SL ×2 (13:37→13:47)
[2017-03-17] MEDS ORDERED: PRD20T PO (13:38)
[2017-03-17] MEDS ORDERED: GUAI600T86 PO (13:45)
[2017-03-17] MEDS ORDERED: MAGN400T39 PO (13:46)
[2017-03-17] MEDS ORDERED: MELA3TAB52 PO (13:47)
[2017-03-17] MEDS ORDERED: IPRA3AMP IH (13:51)
--- NOTE | 2017-03-17 14:23 | Consultation-Cardiology ---
HPI-Cardiology Cardiology Consultation: Date of Consultation 03/17/17 Date of Admission Attending Physician Clarisa Nassar DO Admitting Physician Jose Bautista DO Consulting Physician Gaby WONG MD HPI: Time Seen by Provider: 13:00 Chief Complaint: Chest pain, shortness of breath This is a 46-year-old lady with history of active smoking and severe COPD dependent on oxygen. She developed chest discomfort and shortness of breath after CT scan and resented to the hospital. She was in respiratory distress. When I saw her today she is much better but still looks short of breath. She denies any chest pain during my evaluation however she did complain of chest discomfort on admission. According to the patient she doesn't remember much about her initial presentation. Review of Systems-Cardiology Review of Systems Constitutional: No As described under HPI, No no symptoms reported, No chills, No fever, No lightheadedness, No malaise, No tiredness, No weight loss, No weight gain, No other Eyes: No As described under HPI, No no symptoms reported, No blindness, No blurred vision, No contact lenses, No drainage, No decreased acuity, No foreign body sensation, No glasses, No inflammation, No pain, No photophobia, No previous injury, No shadows, No tunnel vision, No other, No vision change Ears/Nose/Throat: No As described under HPI, No no symptoms reported, No chronic hearing loss, No epistaxis, No ear discharge, No ear pain, No loose teeth, No mouth pain, No mouth swelling, No nasal drainage, No nose pain, No recent hearing loss, No throat pain, No throat swelling, No ulcerations, No other Respiratory: orthopnea, shortness of breath Cardiovascular: No no symptoms reported, No As described under HPI, chest pain , No edema, No irregular heart rate, No lightheadedness, No palpitations, No syncope, No other Gastrointestinal: No no symptoms reported, No As described under HPI, No abdomen distended, No abdominal pain, No blood streaked bowels, No constipation , No diarrhea, No difficulty swallowing, No nausea, No poor appetite, No poor fluid intake, No rectal bleeding, No vomiting, No other, No nausea/vomiting/ diarrhea, No stool coloration changes Genitourinary: No no symptoms reported, No As described under HPI, No burning, No dysuria, No discharge, No frequency, No flank pain, No hematuria, No incontinence, No pain, No urgency, No other, No urine frequency changes, No urine coloration changes : No Musculoskeletal: No no symptoms reported, No As describe under HPI, No back pain, No gout, No joint pain, No joint swelling, No muscle pain, No muscle stiffness, No neck pain, No other Skin: No no symptoms reported, No As described under HPI, No change in color, No change in hair/nails, No dryness, No lesions, No lumps, No rash, No other, No skin related problems, No ulcerations, No rash on exposed areas, No ulcerations on exposed areas Psychiatric/Neurological: No no symptoms reported, No As described under HPI, No anxiety, No depression, No emotional problems, No headache, No numbness, No pre-existing deficit, No seizure, No tingling, No tremors, No weakness, No other , No focal weakness, No syncope All Other Systems Reviewed Negative Unless Noted: Yes JIF-Admcqa-Enlded Hx Patient Social History Marrital Status: single Employed/Student: unemployed Alcohol Use: Denies Use Recreational Drug Use: Yes Drug of Choice: meth, marijuana Smoking Status: Current Everyday Smoker Type Used: Cigarettes 2nd Hand Smoke Exposure: Yes Recent Foreign Travel: No Recent Infectious Disease Expo: No Hospitalization with Isolation: Denies Physical Abuse Screen: No Sexual Abuse: No Immunizations Up To Date Tetanus Booster (TDap): Less than 5yrs Date of Pneumonia Vaccine: Dec 10, 2007 Date of Influenza Vaccine: Jan 12, 2017 Past Medical History PMH As described under Assessment. Allergies and Home Medications Allergies Coded Allergies: azithromycin (Verified Allergy, Intermediate, 03/16/17) lip swelling and blisters codeine (Verified Allergy, Unknown, 03/16/17) Home Medications Acetaminophen 500 Mg Tablet, 1,000 MG PO Q6H, (Reported) Alprazolam 1 Mg Tablet, 1 MG PO TID, (Reported) Amlodipine Besylate 5 Mg Tablet, 10 MG PO DAILY, (Reported) Aspirin 81 Mg Tablet.dr, 81 MG PO DAILY, (Reported) Atorvastatin Calcium 80 Mg Tablet, 80 MG PO HS, (Reported) Clopidogrel Bisulfate 75 Mg Tablet, 75 MG PO DAILY, (Reported) Guaifenesin 600 Mg Tab.er.12h, 600 MG PO BID PRN, (Reported) Ipratropium/Albuterol Sulfate 3 Ml Ampul.neb, 3 ML IH Q4H PRN for SHORTNESS OF BREATH, (Reported) Magnesium Oxide 400 Mg Tablet, 400 MG PO DAILY, (Reported) Melatonin Unknown Strength Tab.rapdis, Unknown Dose PO HS, (Reported) Nitroglycerin 0.4 Mg Tab.subl, 0.4 MG SL, #24 (Reported) Nitroglycerin 0.4 Mg Tab.subl, 0.4 MG SL, #24 (Reported) Physical Exam-Cardiology Physical Exam Vital Signs/I&O Vital Sign - Last 12Hours 03/17/17 03/17/17 03/17/17 03/17/17 02:38 03:00 03:25 03:35 Pulse 105 Resp 21 B/P (MAP) 120/69 (86) Pulse Ox 96 95 93 O2 Delivery Nasal Cannula NIV Bilevel NIV Bilevel O2 Flow Rate 5.00 50.00 FiO2 50 03/17/17 03/17/17 03/17/17 03/17/17 03:37 03:37 04:00 05:00 Pulse 110 98 95 Resp 26 21 13 B/P (MAP) 121/71 (88) 129/111 (117) Pulse Ox 93 92 94 O2 Delivery NIV Bilevel NIV Bilevel NIV Bilevel O2 Flow Rate 40.00 40.00 40.00 40.00 03/17/17 03/17/17 03/17/17 03/17/17 06:00 07:00 07:00 07:24 Pulse 96 99 106 Resp 20 25 B/P (MAP) 115/75 (88) 116/70 (85) Pulse Ox 98 96 97 O2 Delivery NIV Bilevel NIV Bilevel Nasal Cannula O2 Flow Rate 40.00 40.00 5.00 03/17/17 03/17/17 03/17/17 03/17/17 08:00 08:00 08:00 09:00 Temp 97.6 Pulse 116 112 Resp 26 20 B/P (MAP) 121/74 (90) 108/65 (79) Pulse Ox 96 91 O2 Delivery High Flow N/C High Flow N/C NIV Bilevel High Flow N/C O2 Flow Rate 6.00 6.00 40.00 6.00 03/17/17 03/17/17 03/17/17 03/17/17 10:00 11:00 11:24 12:00 Pulse 108 98 100 Resp 19 21 18 B/P (MAP) 103/72 (82) 107/67 (80) 115/75 (88) Pulse Ox 95 93 93 91 O2 Delivery High Flow N/C High Flow N/C Nasal Cannula High Flow N/C O2 Flow Rate 6.00 6.00 5.00 6.00 03/17/17 03/17/17 03/17/17 03/17/17 12:00 12:00 13:00 13:00 Temp 98.0 Pulse 101 101 Resp 22 B/P (MAP) 114/74 (87) Pulse Ox 92 O2 Delivery High Flow N/C High Flow N/C High Flow N/C O2 Flow Rate 6.00 6.00 6.00 Intake and Output 03/17/17 00:00 Intake Total 120 ml Balance 120 ml Capillary Refill : Less Than 3 Seconds Constitutional: AAO x 3, apparent distress HEENT: No PERRL, No normal ENT inspection, No TMs normal, No pharynx normal, No scleral icterus (R), No scleral icterus (L), No pale conjunctivae (R), No pale conjunctivae (L), No photophobia, No TM abnormal (R), No TM abnormal (L), No pharyngeal erythema, No tonsillar exudate, No other, No discharge, No EOMI, No hearing is well preserved, No hard of hearing, No oral hygience is good, No ulceration, No xanthelasmas are seen Neck: No non-tender, No full range of motion, No supple, No normal inspection, No carotid bruit, No limited range of motion, No lymphadenopathy (R), No lymphadenopathy (L), No tender lateral, No tender midline, No thyromegaly, No other, No carotid pulses are 2 + bilaterally, No with good upstrokes Respiratory: No accessory muscle use, No respiratory distress, No chest tender , No chest expansion is symmetric, No chest is bilaterally symmetric, No lungs clear to percussion, No lungs clear to auscultation, No crackles, No rhonchi, No rales, No stridor, wheezing, No pleural rub, No other Cardiovascular: regular rate-rhythm, No irregularly irregular, No extra beats, No parasternal heave is noted, No JVD, No edema, No bradycardia, No tachycardia , No point of maximal impulse, No cardiac thrills are palpable, S1 and S2, No gallop/S3, No gallop/S4, No diastolic murmur, No systolic murmur, No friction rub, No click, No other Gastrointestinal: No tender, No soft, No round, No distended, No pulsatile mass , No organomegaly, No guarding, No rebound, No tenderness, No hernia, No mass, No audible bowel sounds, No abnormal bowel sounds, No abdominal bruits, No spleenomegaly, No other Rectal: deferred Extremities: No normal range of motion, No non-tender, No normal inspection, No pedal edema, No calf tenderness, No normal capillary refill, No pelvis stable , No calf tenderness, No inflammation, No pedal edema, No slow capillary refill , No swelling, No other, No abrasion, No clubbing, No cyanosis, No ecchymosis, No laceration, No no lower extremity edema bilateral, No significant edema, No tenderness, No wound Neurologic/Psychiatric: No housing assistant II-XII nml as tested, No no motor/sensory deficits, No alert, No normal mood/affect, No oriented x 3, No abnormal cerebellar tests, No abnormal housing assistant II-XII, No abnormal gait, No aphasia, No EOM palsy, No facial droop, No motor weakness, No sensory deficit, No depressed affect, No disoriented x 3, No other, No grossly intact, No power is 5/5 both on sides Skin: No normal color, No warm/dry, No cyanosis, No cool, No diaphoresis, No damp, No ecchymosis, No jaundice, No mottled, No pallor, No rash, No tattoos/ piercings, No ulcerations, No rash on exposed areas, No ulcerations on exposed areas, No other Data Review Labs Laboratory Tests 03/16/17 15:09: White Blood Count 9.0, Red Blood Count 4.25L, Hemoglobin 11.7, Hematocrit 42, Mean Corpuscular Volume 100H, Mean Corpuscular Hemoglobin 28, Mean Corpuscular Hemoglobin Concent 28L, Red Cell Distribution Width 12.8, Platelet Count 275, Mean Platelet Volume 10.2, Neutrophils (%) (Auto) 88H, Lymphocytes (%) (Auto) 6L , Monocytes (%) (Auto) 6, Eosinophils (%) (Auto) 0, Basophils (%) (Auto) 0, Neutrophils # (Auto) 7.9H, Lymphocytes # (Auto) 0.6L, Monocytes # (Auto) 0.5, Eosinophils # (Auto) 0.0, Basophils # (Auto) 0.0, Neutrophils % (Manual) 89, Lymphocytes % (Manual) 8, Monocytes % (Manual) 3, Eosinophils % (Manual) 0, Basophils % (Manual) 0, Band Neutrophils 0, Stomatocytes MODERATE, Sodium Level 141, Potassium Level 4.3, Chloride Level 85L, Carbon Dioxide Level 45H, Anion Gap 11, Blood Urea Nitrogen 6L, Creatinine 0.54L, Estimat Glomerular Filtration Rate > 60, BUN/Creatinine Ratio 11, Glucose Level 164H, Lactic Acid Level 1.91, Calcium Level 10.0, Total Bilirubin 0.2, Aspartate Amino Transf (AST/SGOT) 18, Alanine Aminotransferase (ALT/SGPT) 29, Alkaline Phosphatase 76, Troponin I < 0.30, Total Protein 7.7, Albumin 3.8, Serum Test, Qualitative NEGATIVE 03/16/17 15:45: Blood Gas Puncture Site LEFT RADIAL, Blood Gas Patient Temperature 97.8, Arterial Blood pH 7.36L, Arterial Blood Partial Pressure CO2 96*H, Arterial Blood Partial Pressure O2 72L, Arterial Blood HCO3 54*H, Arterial Blood Total CO2 56.6H, Arterial Blood Oxygen Saturation 95, Arterial Blood Base Excess 26.4H , Myke Test POSITIVE, Blood Gas Ventilator Setting NO, Blood Gas Inspired Oxygen 40% BIPAP 03/16/17 20:52: Glucometer 212H 03/16/17 21:10: Troponin I < 0.30 03/17/17 04:22: White Blood Count 5.1, Red Blood Count 3.71L, Hemoglobin 10.3L, Hematocrit 37, Mean Corpuscular Volume 99, Mean Corpuscular Hemoglobin 28, Mean Corpuscular Hemoglobin Concent 28L, Red Cell Distribution Width 12.7, Platelet Count 258, Mean Platelet Volume 10.3, Neutrophils (%) (Auto) 89H, Lymphocytes (%) (Auto) 7L , Monocytes (%) (Auto) 5, Eosinophils (%) (Auto) 0, Basophils (%) (Auto) 0, Neutrophils # (Auto) 4.5, Lymphocytes # (Auto) 0.3L, Monocytes # (Auto) 0.2, Eosinophils # (Auto) 0.0, Basophils # (Auto) 0.0, Sodium Level 142, Potassium Level 4.6, Chloride Level 90L, Carbon Dioxide Level 41H, Anion Gap 11, Blood Urea Nitrogen 9, Creatinine 0.50L, Estimat Glomerular Filtration Rate > 60, BUN/ Creatinine Ratio 18, Glucose Level 200H, Calcium Level 9.5, Phosphorus Level 3.1 , Magnesium Level 1.5L 03/17/17 08:43: Glucometer 235H ECG Impression ECG Initial ECG Rhythm: Normal Sinus Initial ECG Impression: Normal A/P-Cardiology Assessment/Admission Diagnosis Respiratory distress, Severe COPD, Chest pain, Active smoking Plan Respiratory distress: Likely due to COPD exacerbation. Will defer to the primary team. Severe COPD, for to the primary team. Chest pain, rule out acute coronary syndrome with serial negative troponin. Active smoker: strongly encouraged to quit smoking. h/o CHF: request Echo. Check BNP. On examination, does not seem to be in CHF. Thank you for your consultation. Please call me if you have any questions. Jaci Wong MD, FACP, FACC, FSCAI, FHRS, CCDS Interventional Cardiology Cardiac Electrophysiology Vascular Medicine and Endovascular Interventions Clinical Quality Measures DVT/VTE Risk/Contraindication: Risk Factor Score Per Nursin RFS Level Per Nursing on Admit: 2=Moderate Gaby WONG MD Mar 17, 2017 2:23 pm
[2017-03-18] MEDS: RT-ALBUTEROL/IPRATROPIUM 3 ML (DUONEB) VIAL IH SCH ×5 (02:45→18:43)
[2017-03-18 03:51] VITALS: BP 112/74
[2017-03-18] MEDS: methylPREDNISolone 40 MG/ML (Solu-MEDROL) VIAL IV SCH ×3 (05:49→20:32)
[2017-03-18] MEDS: inSUlin (REGULAR) HUMAN 1 UNIT/0.01 ML (CHARGE PER UNIT) SC SCH ×2 (05:55→09:52)
[2017-03-18] MEDS: RT-ADVAIR HFA 115/21 MCG PER PUFF IH SCH ×2 (06:43→18:44)
[2017-03-18] MEDS: ALPRAZolam 1 MG (XANAX) TAB PO SCH ×4 (08:24→20:32)
[2017-03-18] MEDS: NICOTINE 21 MG (NICODERM) PATCH TD SCH (08:24)
[2017-03-18] MEDS: PATCH REMOVAL TP SCH (08:24)
[2017-03-18 08:30] VITALS: BP 118/69
[2017-03-18] MEDS: NS IV 1000 ML 1,000 ML IV SCH ×2 (11:05)
[2017-03-18 12:30] VITALS: BP 111/71
--- NOTE | 2017-03-18 12:35 | Cardiology Progress Note ---
Cardiology SOAP Progress Note Subjective: Improved shortness of breath. Objective: I&O/Vital Signs Vital Sign - Last 12Hours 03/18/17 03/18/17 03/18/17 03/18/17 01:03 02:45 03:51 06:43 Temp 97.1 Pulse 90 75 78 Resp 22 19 18 B/P (MAP) 112/74 (87) Pulse Ox 91 96 87 95 O2 Delivery NIV Bilevel Nasal Cannula O2 Flow Rate 40.00 40.00 5.00 03/18/17 03/18/17 03/18/17 08:00 08:30 10:46 Temp 96.4 Pulse 109 Resp 28 B/P (MAP) 118/69 (85) Pulse Ox 91 91 95 O2 Delivery High Flow N/C High Flow N/C Nasal Cannula O2 Flow Rate 5.00 5.00 5.00 FiO2 86 Intake and Output 03/18/17 00:00 Intake Total 1390 ml Output Total 900 ml Balance 490 ml Weight (Pounds): 112 Weight (Ounces): 4.0 Weight (Calculated Kilograms): [id number] Constitutional: No appears stated age, AAO x 3, No apparent distress, No PERRL , well-developed, No well-nourished, No other Respiratory: No accessory muscle use, No respiratory distress, No chest tender , No chest expansion is symmetric, No chest is bilaterally symmetric, No lungs clear to percussion, No lungs clear to auscultation, No crackles, No rhonchi, No rales, No stridor, wheezing, No pleural rub, No other Cardiovascular: regular rate-rhythm, No irregularly irregular, No extra beats, No parasternal heave is noted, No JVD, No edema, No bradycardia, No tachycardia , No point of maximal impulse, No cardiac thrills are palpable, S1 and S2, No gallop/S3, No gallop/S4, No diastolic murmur, No systolic murmur, No friction rub, No click, No other Gastrointestional: No tender, No soft, No round, No distended, No pulsatile mass, No organomegaly, No guarding, No rebound, No tenderness, No hernia, No mass, No audible bowel sounds, No abnormal bowel sounds, No abdominal bruits, No spleenomegaly, No other Extremities: No normal range of motion, No non-tender, No normal inspection, No pedal edema, No calf tenderness, No normal capillary refill, No pelvis stable , No calf tenderness, No inflammation, No pedal edema, No slow capillary refill , No swelling, No other, No abrasion, No clubbing, No cyanosis, No ecchymosis, No laceration, No no lower extremity edema bilateral, No significant edema, No tenderness, No wound Neurologic/Psychiatric: No audiovisual aids technician II-XII nml as tested, No no motor/sensory deficits, No alert, No normal mood/affect, No oriented x 3, No abnormal cerebellar tests, No abnormal audiovisual aids technician II-XII, No abnormal gait, No aphasia, No EOM palsy, No facial droop, No motor weakness, No sensory deficit, No depressed affect, No disoriented x 3, No other, No grossly intact, No power is 5/5 both on sides Skin: No normal color, No warm/dry, No cyanosis, No cool, No diaphoresis, No damp, No ecchymosis, No jaundice, No mottled, No pallor, No rash, No tattoos/ piercings, No ulcerations, No rash on exposed areas, No ulcerations on exposed areas, No other Results/Procedures: Labs Laboratory Tests 03/17/17 15:37: Glucometer 171H 03/17/17 19:50: Glucometer 289H 03/18/17 05:50: Glucometer 162H 03/18/17 09:41: Glucometer 306H Microbiology 03/16/17 Blood Culture - Preliminary, Resulted No growth 03/16/17 MRSA Screen - Final, Complete MRSA not isolated A/P: Assessment/Dx: Respiratory distress, Severe COPD, Chest pain, Active smoking Plan: Respiratory distress: Likely due to COPD exacerbation. Will defer to the primary team. Severe COPD, for to the primary team. Chest pain, acute coronary syndrome ruled out with serial negative troponin. Active smoker: strongly encouraged to quit smoking. h/o CHF: Echocardiogram showed normal LV function. On examination, does not seem to be in CHF. Thank you for your consultation. Please call me if you have any questions. Jaci Wong MD, FACP, FACC, FSCAI, FHRS, CCDS Interventional Cardiology Cardiac Electrophysiology Vascular Medicine and Endovascular Interventions Gaby WONG MD Mar 18, 2017 12:35 pm
--- NOTE | 2017-03-18 13:17 | Progress Note-Hospitalist ---
Progress Note HPI/CC on Admission CC: Dyspnea HPI: This is a 46-year-old white female clinic patient of Dr. JOHNSON in [place] with a past medical history of severe COPD and was also told by her primary care provider to get her affairs in order and likely a hospice candidate due to the severity of her COPD. She was at via [facility] to obtain CT scan of her lung due to lung nodule but there was no nodule noted on repeat CT scan that she became very short of breath was in severe respiratory distress when she was sent to the ER placed on BiPAP and much improved now. She does continue to smoke and she told me that she wanted to have all natural herbals and supplements instead of pharmaceutical medication to help her get healthy again. She is aware that the first thing she needs to do is discontinue smoking. ER doctor and Dr. Mcmahon talked her about CODE STATUS since if she did get placed on ventilator there would be no chance of getting off the ventilator and trach dependent ventilator dependent status would occur. She is doing better now she only has to take a breath after every for words and she is asking for a Nicoderm patch. Progress Notes/Assess & Plan Date Seen 03/18/17 Time Seen by Provider: 11:45 Admission Dx/Process Respiratory failure Diagonsis/Assessment & Plan Patient seems to be really in denial about her end-stage status of COPD Wants to talk about her social situation a lot during interview Wants to establish with in [place] local area Again expressed her desire to take supplements and herbals rather than pharmaceutical prescriptions No fever, vital signs stable, improved, frail, end-stage status Regular rate and rhythm, diminished breath sounds all schumacher severe in nature No edema Assessment: Acute on chronic respiratory failure end-stage status Plan: IV steroids decrease dose Insulin sliding-scale C with before meals and at bedtime Accu-Cheks Consult cardiology for CHF history is appreciated Reconcile home meds when gathered up and checked for accuracy Poor prognosis long-term definitely hospice candidate due to the severity of her COPD and young age Appreciate Dr. Mcmahon's consultation Diagnosis/Problems Diagnosis/Problems (1) Respiratory failure Status: Acute Qualifiers: Qualified Codes: J96.01 - Acute respiratory failure with hypoxia; J96.02 - Acute respiratory failure with hypercapnia (2) Cardiomyopathy Status: Chronic Qualifiers: Qualified Codes: I42.9 - Cardiomyopathy, unspecified (3) Smoker Status: Acute (4) TEMI (obstructive sleep apnea) Status: Chronic (5) COPD exacerbation Status: Acute Assessment & Plan: IV steroids XIN BERNSTEIN DO Mar 18, 2017 13:17
[2017-03-18] MEDS ORDERED: METH4TAB11 PO (15:09)
[2017-03-18] MEDS: inSUlin ASPART (NovoLOG) 1 UNIT/0.01 ML (CHARGE PER UNIT) SC SCH ×2 (16:44→20:40)
[2017-03-18 16:59] VITALS: BP 114/62
[2017-03-18] MEDS ORDERED: SALINE NASAL SPRAY (OCEAN) 45 ML BTL PRN (17:45)
[2017-03-18] MEDS: FLUTICASONE NASAL SPRAY (FLONASE) 16 GM BTL NS SCH (18:18)
[2017-03-19] VITALS: BP 114/64
[2017-03-19] MEDS: RT-ALBUTEROL/IPRATROPIUM 3 ML (DUONEB) VIAL IH SCH ×4 (01:15→10:41)
[2017-03-19] MEDS: inSUlin ASPART (NovoLOG) 1 UNIT/0.01 ML (CHARGE PER UNIT) SC SCH ×2 (06:26→11:13)
[2017-03-19 06:45] LABS: BASOPHILS % (AUTO) 0 % (0-10); EOSINOPHILS % (AUTO) 0 % (0-10); HEMATOCRIT 36 % (35-52); HEMOGLOBIN 10.3 G/DL (11.5-16.0); LYMPHOCYTES # (AUTO) 0.8 X 10^3 (1.0-4.0); LYMPHOCYTES % (AUTO) 7 % (12-44); MEAN CORPUSCULAR HEMOGLOBIN 28 PG (25-34); MEAN CORPUSCULAR HGB CONC 29 G/DL (32-36); MEAN CORPUSCULAR VOLUME 96 FL (80-99); MEAN PLATELET VOLUME 10.4 FL (7.4-10.4); MONOCYTES # (AUTO) 0.8 X 10^3 (0.0-1.0); MONOCYTES % (AUTO) 7 % (0-12); NEUTROPHILS # (AUTO) 10.1 X 10^3 (1.8-7.8); NEUTROPHILS % (AUTO) 87 % (42-75); PLATELET COUNT 371 10^3/uL (130-400); RED BLOOD COUNT 3.74 10^6/uL (4.35-5.85); RED CELL DISTRIBUTION WIDTH 12.9 % (10.0-14.5); WHITE BLOOD COUNT 11.7 10^3/uL (4.3-11.0)
[2017-03-19 07:14] LABS: ALANINE AMINOTRANSFERASE 14 U/L (0-55); ALKALINE PHOSPHATASE 58 U/L (40-136); BILIRUBIN,TOTAL 0.2 MG/DL (0.1-1.0); BUN/CREATININE RATIO 30; CARBON DIOXIDE 39 MMOL/L (21-32); CHLORIDE 91 MMOL/L (98-107); CREATININE SERUM 0.53 MG/DL (0.60-1.30); GFR ESTIMATED > 60; GLUCOSE 189 MG/DL (70-105); POTASSIUM 4.2 MMOL/L (3.6-5.0); SODIUM 140 MMOL/L (135-145)
[2017-03-19] MEDS: RT-ADVAIR HFA 115/21 MCG PER PUFF IH SCH (07:15)
[2017-03-19 08:46] VITALS: BP 121/67
--- NOTE | 2017-03-19 08:59 | Pulmonary Progress Note ---
Subjective Time Seen by Provider: 09:41 Subjective/Events-last exam pt is doing much better. Exam Exam Vital Signs Date Time Temp Pulse Resp B/P (MAP) Pulse Ox O2 Delivery O2 Flow Rate FiO2 03/19/17 08:46 97.3 115 24 121/67 (85) 93 High Flow N/C 4.00 03/19/17 08:00 96 Nasal Cannula 5.00 86 03/19/17 07:10 96 Nasal Cannula 4.00 03/19/17 02:55 96 Nasal Cannula 4.00 03/19/17 00:00 96.2 88 20 114/64 (81) 96 High Flow N/C 5.00 03/18/17 19:45 96 Nasal Cannula 5.00 86 03/18/17 18:44 92 Nasal Cannula 4.00 03/18/17 16:59 98.6 104 28 114/62 (79) 90 High Flow N/C 5.00 03/18/17 14:51 92 Nasal Cannula 4.00 03/18/17 12:30 98.9 106 24 111/71 (84) 92 High Flow N/C 4.00 03/18/17 10:46 95 Nasal Cannula 5.00 I & O 03/19/17 07:00 Intake Total 3140 ml Output Total 3150 ml Balance -10 ml General Appearance: No Apparent Distress, WD/WN, Anxious, Chronically ill, Cachetic HEENT: PERRL/EOMI, Normal ENT Inspection, Pharynx Normal Neck: Full Range of Motion, Normal Inspection, Non Tender, Supple, Carotid Bruit Respiratory: Chest Non Tender, No Accessory Muscle Use, No Respiratory Distress , Crackles, Decreased Breath Sounds, Wheezing Cardiovascular: Regular Rate, Rhythm, No Edema, No Gallop, No JVD, No Murmur, Normal Peripheral Pulses Capillary Refill: Less Than 3 Seconds Gastrointestinal: normal bowel sounds, non tender, soft Extremity: Normal Capillary Refill, Normal Inspection, Normal Range of Motion, Non Tender, No Calf Tenderness, No Pedal Edema Neurologic/Psychiatric: Alert, Oriented x3, No Motor/Sensory Deficits, Normal Mood/Affect Skin: Normal Color, Warm/Dry Lymphatic: No Adenopathy Results Lab Laboratory Tests 03/19/17 05:25 Assessment/Plan Assessment/Plan Acute on chronic respiratory failure -SVNs -oxygen -PT improved with noninvasive ventilation -PT will benefit from home vent to mask -Pt has oxygen through [facility] Severe COPD with AE - Pt uses 4 liters of oxygen at home Tobacco use -education Methamphetamine hx Marijuana hx 232 I will see pt in 2wks as out patient Clinical Quality Measures DVT/VTE Risk/Contraindication: Risk Factor Score Per Nursin RFS Level Per Nursing on Admit: 2=Moderate TALITA HUIZAR DO Mar 19, 2017 08:59
[2017-03-19] MEDS: methylPREDNISolone 40 MG/ML (Solu-MEDROL) VIAL IV SCH (09:18)
[2017-03-19] MEDS: NICOTINE 21 MG (NICODERM) PATCH TD SCH (09:18)
[2017-03-19] MEDS: ALPRAZolam 1 MG (XANAX) TAB PO SCH (09:18)
[2017-03-19] MEDS: FLUTICASONE NASAL SPRAY (FLONASE) 16 GM BTL NS SCH (09:18)
[2017-03-19] MEDS: PATCH REMOVAL TP SCH (09:19)
--- NOTE | 2017-03-19 09:58 | D/C HH Face to Face Order ---
D/C Face to Face Orders Instructions for Patient Patient Instructions/FollowUp: Please follow up with your PCP in [address] Mcmahon in 2 weeks. Physician to follow Patient: Dr Bautista Discharge Diet for Home: No Restrictions Patient Data-Allergies,Ht & Wt Patient Allergies: Coded Allergies: azithromycin (Verified Allergy, Intermediate, 03/16/17) lip swelling and blisters codeine (Verified Allergy, Unknown, 03/16/17) Height (Feet): 5 Height (Inches): 5.00 Weight (Pounds): 119 Weight (Ounces): 6.0 Home Health Need/Face to Face Date of Face to Face: Mar 19, 2017 Clinical Findings: Shortness of breath I have seen Pt [id number]: Yes Discharged To: Home Diagnosis/Conditions: COPD Problems/Diagnosis/Condition: Patient is Homebound due to: Shortness of breath/distress Homebound Status Due to the above stated illness, injury or surgical procedure (medical condition or diagnosis) and associated clinical findings, the patient is homebound because of his/her inability to leave home except with aid of a supportive device and/or person AND leaving the home requires a considerable and taxing effort or is medically contraindicated. Pt req the following assistanc: Aid of another person Home Health Nursing Orders Home Health Services Order: Nursing Services, Physical Therapy-Evaluate & Treat Home Health Infusion Therapy Line Start Date: Mar 16, 2017 Line Start Time: 1509 Line Type: Saline Lock Site Location: Antecubital Therapy Orders Therapy Orders: Physical Therapy, PT to assess for OT Therapy Specific Orders: Teach enviro modifications/safety, Increase strength/ endurance Certify Stmt I certify that this patient is under my care and that I, a nurse practitioner or a physician; a nurses medical assistants phlebotomists working with me, had a face to face encounter that - meets the physician face to face encounter requirements with this patient as dated. CHELSIE OSEGUERA MD Mar 19, 2017 9:58 am
[2017-03-19] MEDS ORDERED: FLUT12AE4 IH (10:00)
[2017-03-19] MEDS ORDERED: FLUT16SP22 NS (10:00)
[2017-03-19] MEDS ORDERED: PRED10TA22 PO (10:00)
--- NOTE | 2017-03-19 10:06 | Discharge Summary-Hospitalist ---
Diagnosis/Chief Complaint Date of Admission Mar 16, 2017 at 5:19 pm Date of Discharge Discharge Date: Mar 19, 2017 Admission Diagnosis Respiratory failure Discharge Diagnosis (1) Respiratory failure Status: Acute (2) Cardiomyopathy Status: Chronic (3) Smoker Status: Acute (4) TEMI (obstructive sleep apnea) Status: Chronic (5) COPD exacerbation Status: Acute Assessment & Plan: IV steroids Discharge Summary Consultations Dr Иван Moore Discharge Physical Examination Allergies: Coded Allergies: azithromycin (Verified Allergy, Intermediate, 03/16/17) lip swelling and blisters codeine (Verified Allergy, Unknown, 03/16/17) Vitals & I&Os Vital Signs Date Time Temp Pulse Resp B/P (MAP) Pulse Ox O2 Delivery O2 Flow Rate FiO2 03/19/17 08:46 97.3 115 24 121/67 (85) 93 High Flow N/C 4.00 03/19/17 08:00 86 General Appearance: Alert, Oriented X3 Respiratory: Clear to Auscultation Cardiovascular: Regular Rate Neuro: Normal Speech Psych/Mental Status: Mental Status NL Hospital Course Pt presented to the ER with dyspnea after oxygen tank while she was in the hospital for an outpatient CT. On arrival to the ER she was found to have an oxygen sat of 51% and necessitated BiPAP. She was treated for COPD exacerbation and improved and was back down to her home oxygen requirement of 4lpm. She felt well and requested DC on day of discharge. Her sister was at bedside and comfortable with plan to DC home as well. They had no questions and denied any DME needs. Labs (last 24 hrs) Laboratory Tests 03/18/17 16:38: Glucometer 165H 03/18/17 20:35: Glucometer 237H 03/19/17 05:25: White Blood Count 11.7H, Red Blood Count 3.74L, Hemoglobin 10.3L, Hematocrit 36 , Mean Corpuscular Volume 96, Mean Corpuscular Hemoglobin 28, Mean Corpuscular Hemoglobin Concent 29L, Red Cell Distribution Width 12.9, Platelet Count 371, Mean Platelet Volume 10.4, Neutrophils (%) (Auto) 87H, Lymphocytes (%) (Auto) 7L , Monocytes (%) (Auto) 7, Eosinophils (%) (Auto) 0, Basophils (%) (Auto) 0, Neutrophils # (Auto) 10.1H, Lymphocytes # (Auto) 0.8L, Monocytes # (Auto) 0.8, Eosinophils # (Auto) 0.0, Basophils # (Auto) 0.0, Sodium Level 140, Potassium Level 4.2, Chloride Level 91L, Carbon Dioxide Level 39H, Anion Gap 10, Blood Urea Nitrogen 16, Creatinine 0.53L, Estimat Glomerular Filtration Rate > 60, BUN /Creatinine Ratio 30, Glucose Level 189H, Calcium Level 9.0, Total Bilirubin 0.2 , Aspartate Amino Transf (AST/SGOT) 12, Alanine Aminotransferase (ALT/SGPT) 14, Alkaline Phosphatase 58, Total Protein 6.0L, Albumin 3.0L 03/19/17 06:01: Glucometer 154H Microbiology 03/16/17 Blood Culture - Preliminary, Resulted No growth 03/16/17 MRSA Screen - Final, Complete MRSA not isolated Pending Labs Laboratory Tests 03/19/17 05:25: White Blood Count 11.7, Red Blood Count 3.74, Hemoglobin 10.3, Hematocrit 36, Mean Corpuscular Volume 96, Mean Corpuscular Hemoglobin 28, Mean Corpuscular Hemoglobin Concent 29, Red Cell Distribution Width 12.9, Platelet Count 371, Mean Platelet Volume 10.4, Neutrophils (%) (Auto) 87, Lymphocytes (%) (Auto) 7, Monocytes (%) (Auto) 7, Eosinophils (%) (Auto) 0, Basophils (%) (Auto) 0, Neutrophils # (Auto) 10.1, Lymphocytes # (Auto) 0.8, Monocytes # (Auto) 0.8, Eosinophils # (Auto) 0.0, Basophils # (Auto) 0.0, Sodium Level 140, Potassium Level 4.2, Chloride Level 91, Carbon Dioxide Level 39, Anion Gap 10, Blood Urea Nitrogen 16, Creatinine 0.53, Estimat Glomerular Filtration Rate > 60, BUN/ Creatinine Ratio 30, Glucose Level 189, Calcium Level 9.0, Total Bilirubin 0.2, Aspartate Amino Transf (AST/SGOT) 12, Alanine Aminotransferase (ALT/SGPT) 14, Alkaline Phosphatase 58, Total Protein 6.0, Albumin 3.0 03/19/17 06:01: Glucometer 154 Discharge Home Medications: Active Scripts Active Prednisone 10 Mg Tab.ds.pk 10 Mg PO DAILY Take 6 tabs(60mg)daily,decrease by 1 tab(10mg)every other day. Fluticasone Propionate 16 Gm Wilbur.susp 1 Wilbur NS DAILY Advair Hfa 115-21 Mcg Inhaler (Fluticasone/Salmeterol) 12 Gm Hfa.aer.ad 2 Puff IH BID@08,20 Reported Methylprednisolone 4 Mg Tablet 4 Mg PO UD FILLED 03/12/17 #45 / 4 MG PO BID X 15 DAYS THEN 4 MG PO DAILY THEREAFTER Iprat-Albut 0.5-3(2.5) mg/3 ml (Ipratropium/Albuterol Sulfate) 3 Ml Ampul.neb 3 Ml IH Q4H PRN Melatonin Unknown Strength Tab.rapdis Unknown Dose PO HS Alprazolam 1 Mg Tablet 1 Mg PO TID Instructions to patient/family Please see electronic discharge instructions given to patient. Clinical Quality Measures DVT/VTE Risk/Contraindication: Risk Factor Score Per Nursin RFS Level Per Nursing on Admit: 2=Moderate Copy Copies To 1: TALITA HUIZAR DO; RICHELLE JOHNSON DO Problem Qualifiers (1) Respiratory failure: Chronicity: acute Respiratory failure complication: hypoxia and hypercapnia Qualified Codes: J96.01 - Acute respiratory failure with hypoxia; J96.02 - Acute respiratory failure with hypercapnia (2) Cardiomyopathy: Cardiomyopathy type: unspecified Qualified Codes: I42.9 - Cardiomyopathy, unspecified CHELSIE OSEGUERA MD Mar 19, 2017 10:06 am
[2017-03-19 11:35] VITALS: BP 121/67
== END 2017-03-19 11:40 | disposition home or self-care (01) | DRG 189 ==
LOC: EDUNIT# 14:57 → ER 14:58 → ICU 17:19 → 4TH 03-17 15:20
PROVIDERS: ADMIT Internal Medicine; ATTEND Internal Medicine
DX: J96.21 Acute and chronic respiratory failure with hypoxia (principal); J96.22 Acute and chronic respiratory failure with hypercapnia; J44.1 Chronic obstructive pulmonary disease with (acute) exacerbation; G47.33 Obstructive sleep apnea (adult) (pediatric); I42.9 Cardiomyopathy, unspecified; F17.210 Nicotine dependence, cigarettes, uncomplicated; Z99.81 Dependence on supplemental oxygen; I50.9 Heart failure, unspecified; F31.9 Bipolar disorder, unspecified; F41.9 Anxiety disorder, unspecified; F91.3 Oppositional defiant disorder; F12.90 Cannabis use, unspecified, uncomplicated; F15.90 Other stimulant use, unspecified, uncomplicated
CPT/HCPCS: 36415; 71045; 80048; 80053; 82805; 82962; 83605; 83735; 84100; 84484; 84703; 85007; 85025; 85027; 87040; 87081; 93005; 93306; 94640; 94660; 94760; 96361; 96374

== ENCOUNTER → 2017-03-16 | Outpatient (CLI) | payer MEDICAID ==
[~2017-03-16] MED LIST: ACET-93 PO; ALPR1TAB7 PO; AMLO5TAB2 PO; ASPI-586 PO; ATOR80TA76 PO; CLOP75TA69 PO; FLUT12AE4 IH; FLUT16SP22 NS; GUAI600T86 PO; IPRA3AMP IH; MAGN400T39 PO; MELA3TAB52 PO; METH4TAB11 PO; NITR0.4T42 SL; PERM1LIQ MC; PRD20T PO; PRED10TA22 PO
--- NOTE | 2017-03-16 14:52 | Diagnostic Imaging Report ---
PROCEDURE: CT chest without contrast. TECHNIQUE: Multiple contiguous axial images were obtained through the chest without the use of intravenous contrast. INDICATION: Lung nodule followup. Comparison is made with prior study from 12/15/16. FINDINGS: There is obstructive airway disease. The lungs are clear with interval resolution of the parenchymal infiltrates and nodularity seen on 12/15/16 study. No new abnormality has developed in the interval. There is no effusion or pneumothorax. There is no suspicious lymphadenopathy. IMPRESSION: COPD. The previously described parenchymal abnormalities have resolved. No new abnormality has developed. Dictated by: Dictated on workstation # [id number]
== END ==
LOC: RAD 14:06
PROVIDERS: ATTEND Nurse Practitioner Family
DX: Z09 Encounter for follow-up examination after completed treatment for conditions other than malignant neoplasm (principal); J44.9 Chronic obstructive pulmonary disease, unspecified
CPT/HCPCS: 71250